=== PATIENT | male | born 1985 | race Caucasian/White ===

== ENCOUNTER 2018-04-12 14:07 | Emergency (ER) | payer OTHER ==
[~2018-04-12] VITALS: Ht 182.9 cm; Wt 68.2 kg
[~2018-04-12 14:07] MED LIST: ACETAMINOPHEN-120 ML PO; FLEXERIL5 MG PO; MEDROL DOSEPAK4 MG PO; MOTRIN600 MG PO; MYCOSTATIN 100,60 ML PO; NAPROSYN500 MG PO; NARCAN4 MG NS; NO HOME MEDS; NORCO 5/3251 TABLET PO; PERCOCET 5/31 TABLET PO; VALACYCLOVIR500 MG PO; ZANTAC150 MG PO; ZOFRAN ODT8 MG PO; ZOFRAN4 MG PO
[2018-04-12 15:11] LABS: HEMATOCRIT 40.4 % (38.0-50.0); HEMOGLOBIN 14.3 G/DL (12.5-16.6); MCH 28.8 PG (29.0-34.0); MCHC 35.4 G/DL (30.0-36.0); MCV 81.3 FL (86-99); PLATELET COUNT 186 K/uL (156-360); RBC DIS.WIDTH-CV 12.5 % (11.8-14.6); RBC DIS.WIDTH-SD 36.7 % (39-53); RED BLOOD COUNT 4.97 M/uL (4.00-5.50); WHITE BLOOD COUNT 8.2 K/uL (4.1-10.2)
[2018-04-12 15:20] LABS: ALBUMIN 4.1 g/dL (3.2-4.8); CHLORIDE 102 mEq/L (99-109); POTASSIUM 4.1 mEq/L (3.7-5.4); SODIUM 138 mEq/L (136-147)
[2018-04-12 15:22] LABS: GLUCOSE 126 mg/dL (70-99); TOTAL PROTEIN 6.6 g/dL (6.4-8.3)
[2018-04-12 15:24] LABS: TOTAL BILIRUBIN 0.6 mg/dL (0.0-1.0)
[2018-04-12 15:26] LABS: ALKALINE PHOSPHATASE 116 IU/L (3-129); CREATININE 0.9 mg/dL (0.6-1.3); GFR ESTIMATE (CALCULATED) > 59 mL/min/ (58.99-99999)
[2018-04-12 15:27] LABS: UREA NITROGEN (BUN) 10 mg/dL (9-23)
[2018-04-12 15:28] LABS: AST (GOT) 111 IU/L (2-34)
[2018-04-12 15:29] LABS: ALT (GPT) 134 IU/L (3-49)
[2018-04-12 17:52] LABS: APPEARANCE CLEAR ((CLEAR)); BILIRUBIN NEGATIVE; BLOOD NEGATIVE; COLOR YELLOW ((YELLOW)); GLUCOSE (STRIP) NEGATIVE; KETONES NEGATIVE; LEUKOCYTES NEGATIVE; NITRITE NEGATIVE; PROTEIN (STRIP) NEGATIVE; SPECIFIC GRAVITY 1.019 (1.000-1.030); UCUL ADDED? NO
[2018-04-12] MEDS ORDERED: BACTRIM,SEPT1 TABLET PO (18:11)
[2018-04-12 18:35] VITALS: BP 104/64
== END 2018-04-12 18:37 | disposition home or self-care (01) ==
LOC: EME 14:07
DX: L30.9 Dermatitis, unspecified (principal); B95.62 Methicillin resistant Staphylococcus aureus infection as the cause of diseases classified elsewhere; K12.0 Recurrent oral aphthae; R19.5 Other fecal abnormalities; Z86.19 Personal history of other infectious and parasitic diseases; Z88.0 Allergy status to penicillin; F17.200 Nicotine dependence, unspecified, uncomplicated
CPT/HCPCS: 80053; 81003; 85027; 99281; 99284